=== PATIENT | male | born 1950 | race Caucasian/White ===

== ENCOUNTER 2018-06-14 02:17 | Observation (INO) | payer OTHER ==
[2018-06-14 02:24] VITALS: BMI 35.9
--- NOTE | 2018-06-14 02:30 | PDOC ---
History of Present Illness - General Chief Complaint: Overdose Stated Complaint: OVERDOSE Time Seen by Provider: 06/14/18 02:26 History Source: Patient, Spouse Exam Limitations: No Limitations - History of Present Illness Initial Comments: 06/14/18 02:45 prior to arrival, pt took 50U of humulog instead of the 5 that he normally takes. Accidental. Pt told his and she called EMS. Pt has no suicidal intent and he is in no pain; he complains of no weakness. He is eating normally. FS at home was 110. Here is 99. Past History - Travel Close contact w/someone who was outside of country & ill: No - Past Medical History Allergies/Adverse Reactions: Allergies Allergy/AdvReac Type Severity Reaction Status Date / Time No Known Allergies Allergy Verified 06/14/18 02:25 Home Medications: Ambulatory Orders Amlodipine Besylate/Benazepril [Lotrel 10-20 mg Capsule] 1 cap PO DAILY Duloxetine HCl 60 mg PO DAILY 06/14/18 Insulin Glargine,Hum.rec.anlog [Edward Wrightostar] 50 unit SQ DAILY 06/14/18 Insulin Lispro [Humalog] 5 - 15 unit SQ ACHS 06/14/18 Insulin Lispro [Humalog] 100 unit SQ PC 06/14/18 Metformin HCl [Glucophage] 1,000 mg PO BID 06/14/18 Omeprazole 20 mg PO DAILY 06/14/18 Pravastatin Sodium 20 mg PO DAILY 06/14/18 Semaglutide [Ozempic] 0.25 mg SQ WEEKLY 06/14/18 - Suicide/Smoking/Psychosocial Hx Smoking History: Former smoker Have you smoked in the past 12 months: No Information on smoking cessation initiated: No Review of Systems - Review of Systems Constitutional: No: Symptoms Reported, See HPI, Chills, Diaphoresis, Fever, Loss of Appetite, Malaise, Night Sweats, Weakness, Weight Stable, Unintentional Wgt. Loss, Unexplained wgt Loss, Other HEENTM: No: Symptoms Reported, See HPI, Eye Pain, Blurred Vision, Tearing, Recent change in vision, Double Vision, Cataracts, Ear Pain, Ocular Prothesis, Ear Discharge, Nose Pain, Nose Congestion, Tinnitus, Nose Bleeding, Hearing Loss , Throat Pain, Throat Swelling, Mouth Pain, Dental Problems, Difficulty Swallowing, Mouth Swelling, Other Respiratory: No: Symptoms reported, See HPI, Cough, Orthopnea, Shortness of Breath, SOB with Exertion, SOB at Rest, Stridor, Wheezing, Productive cough, Hemoptysis, Other Cardiac (ROS): No: Symptoms Reported, See HPI, Chest Pain, Edema, Irregular Heart Rate, Lightheadedness, Palpitations, Syncope, Chest Tightness, Other ABD/GI: No: Symptoms Reported, See HPI, Abdominal Distended, Abd. Pain w/ defecation, Blood Streaked Bowels, Constipated, Diarrhea, Difficulty Swallowing , Nausea, Poor Appetite, Poor Fluid Intake, Rectal Bleeding, Vomiting, Indigestion, Abdominal cramping, Tarry Stools, Other : No: Symptoms Reported, See HPI, Burning, Dysuria, Discharge, Frequency, Flank Pain, Hematuria, Incontinence, Pain, Urgency, Testicular Mass, Testicular Swelling, Lesions, Testicular Pain, Other Musculoskeletal: No: Symptoms Reported, See HPI, Back Pain, Gout, Joint Pain, Joint Swelling, Muscle Pain, Muscle Weakness, Neck Pain, Joint Stiffness, Other Integumentary: No: Symptoms Reported, See HPI, Bruising, Change in Color, Change in Hair/Nails, Dryness, Erythema, Flushing, Lesions, Lumps, Pallor, Pruritus, Rash, Sweating, Other Neurological: No: Symptoms reported, See HPI, Headache, Numbness, Paresthesia, Pre-Existing Deficit, Seizure, Tingling, Tremors, Weakness, Unsteady Gait, Ataxia, Dizziness, Other Hematologic/Lymphatic: No: Symptoms Reported, See HPI, Anemia, Blood Clots, Easy Bleeding, Easy Bruising, Bleeding Diathesis, Lymph Node Abnormalities, Swollen Glands, Other *Physical Exam - Vital Signs Last Vital Signs Temp Pulse Resp BP Pulse Ox 98.3 F 83 17 154/64 97 06/14/18 02:19 06/14/18 02:19 06/14/18 02:19 06/14/18 02:19 06/14/18 02:19 - Physical Exam General Appearance: Yes: Nourished, Appropriately Dressed, Other. No: Apparent Distress HEENT: positive: EOMI, Normal ENT Inspection, Symmetrical Neck: positive: Tender, Trachea midline, Normal Thyroid, Supple Respiratory/Chest: positive: Lungs Clear, Normal Breath Sounds. negative: Chest Tender, Respiratory Distress Cardiovascular: positive: Regular Rhythm, Regular Rate, S1, S2 Gastrointestinal/Abdominal: positive: Normal Bowel Sounds, Soft Musculoskeletal: positive: Normal Inspection. negative: CVA Tenderness Extremity: positive: Normal Capillary Refill, Normal Inspection, Normal Range of Motion, Pelvis Stable. negative: Tender Integumentary: positive: Normal Color, Dry, Warm Neurologic: positive: cow trimmer II-XII NML intact, Fully Oriented, Alert, Normal Mood/ Affect, Normal Response, Motor Strength 06/28 ED Treatment Course - LABORATORY CBC & Chemistry Diagram: 06/14/18 02:10 06/14/18 02:10 Medical Decision Making - Medical Decision Making 06/14/18 02:52 Pt will be observed in the ER. Humulog will remain in the blood active x 4 hrs. We will d/c patient at 7AM 06/14/18 03:01 Pt's blood sugar is 77 now. 06/14/18 04:05 He will be admitted for obs. as it is unclear what he took at home, and his blood sugar dropped to 45. 06/14/18 04:23 Pt was given D50 and his blood sugar dropped to 90s We will continue to watch in the ER; ED Obs and he will be signed out to the day ER team. 06/14/18 04:25 Pt refusing CXR; it is ok. *DC/Admit/Observation/Transfer Diagnosis at time of Disposition: Overdose of insulin, Hypoglycemia - Discharge Dispostion Condition at time of disposition: Guarded Decision to Admit order: Yes - Referrals - Patient Instructions - Post Discharge Activity
[2018-06-14] MEDS ORDERED: DEXTROSE 5%-0.45% SALINE 1,000 ML IV SCH (02:45)
[2018-06-14 02:52] LABS: BASO % 0.5 % (0-2.0); EOS % 1.4 % (0-4.5); HEMATOCRIT 42.7 % (35.4-49); HEMOGLOBIN 14.2 GM/dL (11.7-16.9); LYMPH % 56.2 % (8-40); MCH 27.5 pg (25.7-33.7); MCHC 33.2 g/dl (32.0-35.9); MEAN CELL VOLUME 82.9 fl (80-96); MEAN PLT VOLUME 8.3 fl (7.5-11.1); MONO % 4.9 % (3.8-10.2); PLATELET COUNT 269 K/MM3 (134-434); RBC 5.15 M/mm3 (4.00-5.60); RDW 13.8 % (11.9-15.9); WHITE BLOOD COUNT 13.4 K/mm3 (4.0-10.0)
[2018-06-14 03:17] LABS: ALBUMIN 4.2 g/dl (3.4-5.0); ALK PHOS 58 U/L (45-117); ANION GAP 9 MMOL/L (8-16); BILIRUBIN,TOTAL 0.2 mg/dL (0.2-1); BLOOD UREA NITROGEN 18 mg/dL (7-18); CALCIUM 9.4 mg/dL (8.5-10.1); CHLORIDE 109 mmol/L (98-107); CO2 23 mmol/L (21-32); CREATININE 1.2 mg/dL (0.55-1.3); GLUCOSE,RANDOM 79 mg/dL (74-106); POTASSIUM 3.9 mmol/L (3.5-5.1); SGOT/AST 17 U/L (15-37); SGPT/ALT 26 U/L (13-61); SODIUM 141 mmol/L (136-145); TOT PROT 7.6 g/dl (6.4-8.2)
[2018-06-14] MEDS ORDERED: DEXTROSE 50%-WATER 25 GM/50 ML DISP.SYRIN ONE ×2 (03:39→05:08)
[2018-06-14] MEDS ORDERED: DEXTROSE 50%-WATER - 25 GM/50 ML VIAL IVPUSH ONE ×2 (04:05→05:26)
[2018-06-14 06:46] VITALS: TEMP 97.8
[2018-06-14 08:10] LABS: BASO % 0.6 % (0-2.0); EOS % 1.1 % (0-4.5); HEMATOCRIT 38.8 % (35.4-49); HEMOGLOBIN 12.9 GM/dL (11.7-16.9); LYMPH % 43.5 % (8-40); MCH 27.6 pg (25.7-33.7); MCHC 33.2 g/dl (32.0-35.9); MEAN CELL VOLUME 83.1 fl (80-96); MEAN PLT VOLUME 8.2 fl (7.5-11.1); MONO % 7.1 % (3.8-10.2); NEUT % 47.7 % (42.8-82.8); PLATELET COUNT 243 K/MM3 (134-434); RBC 4.67 M/mm3 (4.00-5.60); RDW 13.9 % (11.9-15.9); WHITE BLOOD COUNT 11.9 K/mm3 (4.0-10.0)
[2018-06-14 08:34] LABS: ALBUMIN 3.6 g/dl (3.4-5.0); ALK PHOS 51 U/L (45-117); ANION GAP 7 MMOL/L (8-16); BILIRUBIN,TOTAL 0.3 mg/dL (0.2-1); BLOOD UREA NITROGEN 20 mg/dL (7-18); CALCIUM 9.2 mg/dL (8.5-10.1); CHLORIDE 109 mmol/L (98-107); CO2 23 mmol/L (21-32); CREATININE 1.1 mg/dL (0.55-1.3); GLUCOSE,RANDOM 74 mg/dL (74-106); PHOSPHOROUS 4.5 mg/dL (2.5-4.9); POTASSIUM 4.4 mmol/L (3.5-5.1); SGOT/AST 17 U/L (15-37); SGPT/ALT 26 U/L (13-61); SODIUM 139 mmol/L (136-145); TOT PROT 6.7 g/dl (6.4-8.2)
--- NOTE | 2018-06-14 10:02 | HP ---
CHIEF COMPLAINT: Overdose of short acting insulin PCP: None Senior Maintenance Technician:Dr Adriana Petit HISTORY OF PRESENT ILLNESS: Pt is a 67 Yo M with PMHx of HTN, T2DM, Asthma, GERD who presented in the ED from home at about 1am after injecting 50U of humalog accidentally, instead of about 5U last night about 11pm. No diaphoresis , no SOB, no pre-syncopal effects or tremors. Pt Started ozempic 2 months ago at 0.25mg on Tuesdays, once a week since which he has been needing to take extra glucose tablets more frequently. He is also on Toujeo-50U at night, glyburide-5mg bid, metformin 1000bid. He took all his night time medications before coming to the ED. He had no symptoms of hypoglycemia, but once he noticed , he took glucose tablets at home. Pt also has a glucose level monitor that he wears which has been giving him more frequent alerts to low glucose especially since he started ozempic. Also over the past month, he has started working with a university administrator and has adjusted his diet considerably. Pt reports prolonged satiety and abdominal discomfort since taking ozempic. Pt does not follow with a PCP, but sees his green lumber grader for medication adjustments. Initial BGM was 97 in ED>>54 >>77>>86. Since he has been in the ED, his blood glucose has not been up to 100. I spoke with poison control, who said humalog peak action should have been 30- 120mins, with overall duration <5hours. Poison control recommended pt be started on a diet and have glucose above [id number] before discharge. When I saw pt in the ED, the last BGM was 74, after breakfast. ER course was notable for: (1)BGM-97 in ED>>54 >>77>>86. (2) (3)D5/1/2 NS, D50 x2 Recent Travel: PAST MEDICAL HISTORY: HTN, T2DM, Asthma, GERD PAST SURGICAL HISTORY: Social History: Smoking:Smoked 1/2PPD for 10 years, quit 30yrs ago Alcohol: Drugs: Family History: Allergies No Known Allergies Allergy (Verified 06/14/18 02:25) HOME MEDICATIONS: Home Medications Medication Instructions Recorded Amlodipine Besylate/Benazepril 1 cap PO DAILY 06/14/18 [Lotrel 10-20 mg Capsule] Duloxetine HCl 60 mg PO DAILY 06/14/18 Insulin Glargine,Hum.rec.anlog 50 unit SQ DAILY 06/14/18 [Edward Abreu Adrianaostar] Insulin Lispro [Humalog] 5 - 15 unit SQ ACHS 06/14/18 Insulin Lispro [Humalog] 100 unit SQ PC 06/14/18 Metformin HCl [Glucophage] 1,000 mg PO BID 06/14/18 Omeprazole 20 mg PO DAILY 06/14/18 Pravastatin Sodium 20 mg PO DAILY 06/14/18 Semaglutide [Ozempic] 0.25 mg SQ WEEKLY 06/14/18 REVIEW OF SYSTEMS No symptoms PHYSICAL EXAMINATION Vital Signs - 24 hr 06/14/18 06/14/18 06/14/18 02:19 04:22 06:46 Temperature 98.3 F 97.8 F Pulse Rate 83 Pulse Rate [ 71 Right Radial] Respiratory 17 17 Rate Blood Pressure 154/64 Blood Pressure 130/63 [Right Arm] O2 Sat by Pulse 97 97 94 L Oximetry (%) GENERAL: Awake, alert, and fully oriented, in no acute distress. HEAD: Normal with no signs of trauma. EYES: Pupils equal, round and reactive to light, extraocular movements intact EARS, NOSE, THROAT: Ears normal, nares patent, oropharynx clear without exudates. Moist mucous membranes. NECK: Normal range of motion, supple LUNGS: Breath sounds equal, clear to auscultation bilaterally. No wheezes, and no crackles. HEART: Regular rate and rhythm, normal S1 and S2 ABDOMEN: Soft, nontender, obese, normoactive bowel sounds, no guarding MUSCULOSKELETAL: Normal range of motion at all joints. No bony deformities or tenderness. No CVA tenderness. LOWER EXTREMITIES: 2+ pulses, warm, well-perfused. No peripheral edema. NEUROLOGICAL: Cranial nerves II-XII intact. Normal speech. No lateralizing signs PSYCHIATRIC: Cooperative. Good eye contact. Appropriate mood and affect. CBC, BMP 06/14/18 07:50 06/14/18 07:50 Laboratory Results - last 24 hr 06/14/18 06/14/18 06/14/18 02:10 02:10 02:56 WBC 13.4 H RBC 5.15 Hgb 14.2 Hct 42.7 MCV 82.9 MCH 27.5 MCHC 33.2 RDW 13.8 Plt Count 269 MPV 8.3 Absolute Neuts (auto) 5.0 Neutrophils % 37.0 L Lymphocytes % 56.2 H Monocytes % 4.9 Eosinophils % 1.4 Basophils % 0.5 Nucleated RBC % 0 Sodium 141 Potassium 3.9 Chloride 109 H Carbon Dioxide 23 Anion Gap 9 BUN 18 Creatinine 1.2 Creat Clearance w eGFR 60.39 POC Glucometer 70 Random Glucose 79 Calcium 9.4 Phosphorus Magnesium Total Bilirubin 0.2 AST 17 ALT 26 Alkaline Phosphatase 58 Total Protein 7.6 Albumin 4.2 06/14/18 06/14/18 06/14/18 03:42 04:15 05:10 WBC RBC Hgb Hct MCV MCH MCHC RDW Plt Count MPV Absolute Neuts (auto) Neutrophils % Lymphocytes % Monocytes % Eosinophils % Basophils % Nucleated RBC % Sodium Potassium Chloride Carbon Dioxide Anion Gap BUN Creatinine Creat Clearance w eGFR POC Glucometer 46 97 54 Random Glucose Calcium Phosphorus Magnesium Total Bilirubin AST ALT Alkaline Phosphatase Total Protein Albumin 06/14/18 06/14/18 06/14/18 06:37 07:31 07:50 WBC RBC Hgb Hct MCV MCH MCHC RDW Plt Count MPV Absolute Neuts (auto) Neutrophils % Lymphocytes % Monocytes % Eosinophils % Basophils % Nucleated RBC % Sodium 139 Potassium 4.4 Chloride 109 H Carbon Dioxide 23 Anion Gap 7 L BUN 20 H Creatinine 1.1 Creat Clearance w eGFR 66.77 POC Glucometer 77 86 Random Glucose 74 Calcium 9.2 Phosphorus 4.5 Magnesium 2.0 Total Bilirubin 0.3 AST 17 ALT 26 Alkaline Phosphatase 51 Total Protein 6.7 Albumin 3.6 06/14/18 06/14/18 07:50 09:01 WBC 11.9 H RBC 4.67 Hgb 12.9 Hct 38.8 MCV 83.1 MCH 27.6 MCHC 33.2 RDW 13.9 Plt Count 243 MPV 8.2 Absolute Neuts (auto) 5.7 Neutrophils % 47.7 D Lymphocytes % 43.5 H D Monocytes % 7.1 Eosinophils % 1.1 Basophils % 0.6 Nucleated RBC % 0 Sodium Potassium Chloride Carbon Dioxide Anion Gap BUN Creatinine Creat Clearance w eGFR POC Glucometer 74 Random Glucose Calcium Phosphorus Magnesium Total Bilirubin AST ALT Alkaline Phosphatase Total Protein Albumin Current Medications Dextrose/Sodium Chloride (D5-1/2ns -) 1,000 mls @ 42 mls/hr IV ASDIR JAYESH Last Admin: 06/14/18 03:01 Dose: 42 mls/hr Ambulatory Orders Amlodipine Besylate/Benazepril [Lotrel 10-20 mg Capsule] 1 cap PO DAILY Duloxetine HCl 60 mg PO DAILY 06/14/18 Insulin Glargine,Hum.rec.anlog [Tousocorro Abreu Solostar] 50 unit SQ DAILY 06/14/18 Insulin Lispro [Humalog] 5 - 15 unit SQ ACHS 06/14/18 Insulin Lispro [Humalog] 100 unit SQ PC 06/14/18 Metformin HCl [Glucophage] 1,000 mg PO BID 06/14/18 Omeprazole 20 mg PO DAILY 06/14/18 Pravastatin Sodium 20 mg PO DAILY 06/14/18 Semaglutide [Ozempic] 0.25 mg SQ WEEKLY 06/14/18 ASSESSMENT/PLAN: Pt is a 67 Yo M with PMHx of HTN, T2DM, Asthma, GERD who presented in the ED from home at about 1am after injecting 50U of humalog accidentally, instead of about 5U last night about 11pm. #Insulin overdose in T2DM Pt reported it as accidental, with no intention to harm himself Took short acting instead of long acting Spoke with poison control- Glucose should have returned to above 100 within 5 years Delayed normoglycemia could be attributed to multiple hypoglycemic agents Hold all oral hypoglycemics for now Follow up with PMD on Friday06/15/18 Pt to take long acting insulin if sugars >150 Pt to monitor glucose with glucometer and continous monitor Will need to discuss medication adjustments with PMD #Leucocytosis 13.4>.11 Pt not on chronic steroids Denied any symptoms on ROS UA pending #HTN Cont otrel for BP #Asthma Not in exacerbation Not on home nebs or inhalers Cont to monitor #GERD Cont omeprazole #FEN Pt on D51/2NS Monitor lytes, replete as needed Diabetic diet #PPx Early ambulation #Dispo For Dc home if glucose normalizes Visit type - Emergency Visit Emergency Visit: Yes ED Registration Date: 06/14/18 Care time: The patient presented to the Emergency Department on the above date and was hospitalized for further evaluation of their emergent condition. - New Patient This patient is new to me today: Yes Date on this admission: 06/14/18 - Critical Care Critical Care patient: No
[2018-06-14 10:25] LABS: ANISOCYTOSIS 0; HELMET CELLS 0; HOWELL-JOLLY BODIES 0; MACROCYTOSIS 0; OVALOCYTE 0; PLATELET ESTIMATE NORMAL; ROULEAU 0; SICKELED CELLS 0; TARGET CELLS 0; TEAR DROP CELLS 0; TOXIC GRANULATION 0
[2018-06-14 11:43] LABS: URINE APPEARANCE CLEAR; URINE BILIRUBIN NEGATIVE (NEGATIVE); URINE COLOR YELLOW; URINE GLUCOSE (UA) NEGATIVE (NEGATIVE); URINE KETONE NEGATIVE (NEGATIVE); URINE LEUK ESTERASE NEGATIVE (NEGATIVE); URINE NITRITE NEGATIVE (NEGATIVE); URINE PROTEIN NEGATIVE (NEGATIVE); URINE UROBILINOGEN 0.2 mg/dL (0.2-1.0)
--- NOTE | 2018-06-14 12:34 | DS ---
Physical Exam: SUBJECTIVE: Patient seen and examined. Pt has no symptoms, no SOB, no diaphoresis, no dizziness. Had a little oatmeal to eat in the am OBJECTIVE: Vital Signs Period Temp Pulse Resp BP Sys/Vazquez Pulse Ox Last 24 Hr 97.8 F-98.3 F 71-83 17-17 130-154/63-64 94-97 Vital Signs Temp 97.8 F 06/14/18 06:46 Pulse 71 06/14/18 06:46 Resp 17 06/14/18 04:22 BP 130/63 06/14/18 06:46 Pulse Ox 94 L 06/14/18 06:46 Intake & Output 06/13/18 06/14/18 06/14/18 23:59 11:59 23:59 Weight 113.398 kg Other: Voiding Method Toilet Height 1.78 m Body Mass Index (BMI) 35.9 Weight Measurement Method Est/Stated by Patient PHYSICAL EXAM GENERAL: Awake, alert, and fully oriented, in no acute distress. HEAD: Normal with no signs of trauma. EYES: Pupils equal, round and reactive to light, extraocular movements intact EARS, NOSE, THROAT: Ears normal, nares patent, oropharynx clear without exudates. Moist mucous membranes. NECK: Normal range of motion, supple LUNGS: Breath sounds equal, clear to auscultation bilaterally. No wheezes, and no crackles. HEART: Regular rate and rhythm, normal S1 and S2 ABDOMEN: Soft, nontender, obese, normoactive bowel sounds, no guarding MUSCULOSKELETAL: Normal range of motion at all joints. No bony deformities or tenderness. No CVA tenderness. LOWER EXTREMITIES: 2+ pulses, warm, well-perfused. No peripheral edema. NEUROLOGICAL: Cranial nerves II-XII intact. Normal speech. No lateralizing signs PSYCHIATRIC: Cooperative. Good eye contact. Appropriate mood and affect. LABS Laboratory Results - last 24 hr 06/14/18 06/14/18 06/14/18 02:10 02:10 02:56 WBC 13.4 H RBC 5.15 Hgb 14.2 Hct 42.7 MCV 82.9 MCH 27.5 MCHC 33.2 RDW 13.8 Plt Count 269 MPV 8.3 Absolute Neuts (auto) 5.0 Neutrophils % 37.0 L Neutrophils % (Manual) Band Neutrophils % Lymphocytes % 56.2 H Lymphocytes % (Manual) Monocytes % 4.9 Monocytes % (Manual) Eosinophils % 1.4 Eosinophils % (Manual) Basophils % 0.5 Basophils % (Manual) Myelocytes % (Man) Promyelocytes % (Man) Blast Cells % (Manual) Nucleated RBC % 0 Metamyelocytes Hypochromia Toxic Granulation Dohle Bodies Platelet Estimate Polychromasia Poikilocytosis Basophilic Stippling Anisocytosis Microcytosis Macrocytosis Spherocytes Sickle Cells Target Cells Tear Drop Cells Ovalocytes Stomatocytes Helmet Cells [place] Bodies [place] Rings [place] Cells Acanthocytes (Spur) Rouleaux Fragmented RBCs Schistocytes Sodium 141 Potassium 3.9 Chloride 109 H Carbon Dioxide 23 Anion Gap 9 BUN 18 Creatinine 1.2 Creat Clearance w eGFR 60.39 POC Glucometer 70 Random Glucose 79 Calcium 9.4 Phosphorus Magnesium Total Bilirubin 0.2 AST 17 ALT 26 Alkaline Phosphatase 58 Total Protein 7.6 Albumin 4.2 Urine Color Urine Appearance Urine pH Ur Specific [place] Urine Protein Urine Glucose (UA) Urine Ketones Urine Blood Urine Nitrite Urine Bilirubin Urine Urobilinogen Ur Leukocyte Esterase 06/14/18 06/14/18 06/14/18 03:42 04:15 05:10 WBC RBC Hgb Hct MCV MCH MCHC RDW Plt Count MPV Absolute Neuts (auto) Neutrophils % Neutrophils % (Manual) Band Neutrophils % Lymphocytes % Lymphocytes % (Manual) Monocytes % Monocytes % (Manual) Eosinophils % Eosinophils % (Manual) Basophils % Basophils % (Manual) Myelocytes % (Man) Promyelocytes % (Man) Blast Cells % (Manual) Nucleated RBC % Metamyelocytes Hypochromia Toxic Granulation Dohle Bodies Platelet Estimate Polychromasia Poikilocytosis Basophilic Stippling Anisocytosis Microcytosis Macrocytosis Spherocytes Sickle Cells Target Cells Tear Drop Cells Ovalocytes Stomatocytes Helmet Cells [place] Bodies [place] Rings [place] Cells Acanthocytes (Spur) Rouleaux Fragmented RBCs Schistocytes Sodium Potassium Chloride Carbon Dioxide Anion Gap BUN Creatinine Creat Clearance w eGFR POC Glucometer 46 97 54 Random Glucose Calcium Phosphorus Magnesium Total Bilirubin AST ALT Alkaline Phosphatase Total Protein Albumin Urine Color Urine Appearance Urine pH Ur Specific [place] Urine Protein Urine Glucose (UA) Urine Ketones Urine Blood Urine Nitrite Urine Bilirubin Urine Urobilinogen Ur Leukocyte Esterase 06/14/18 06/14/18 06/14/18 06:37 07:31 07:50 WBC RBC Hgb Hct MCV MCH MCHC RDW Plt Count MPV Absolute Neuts (auto) Neutrophils % Neutrophils % (Manual) Band Neutrophils % Lymphocytes % Lymphocytes % (Manual) Monocytes % Monocytes % (Manual) Eosinophils % Eosinophils % (Manual) Basophils % Basophils % (Manual) Myelocytes % (Man) Promyelocytes % (Man) Blast Cells % (Manual) Nucleated RBC % Metamyelocytes Hypochromia Toxic Granulation Dohle Bodies Platelet Estimate Polychromasia Poikilocytosis Basophilic Stippling Anisocytosis Microcytosis Macrocytosis Spherocytes Sickle Cells Target Cells Tear Drop Cells Ovalocytes Stomatocytes Helmet Cells [place] Bodies [place] Rings [place] Cells Acanthocytes (Spur) Rouleaux Fragmented RBCs Schistocytes Sodium 139 Potassium 4.4 Chloride 109 H Carbon Dioxide 23 Anion Gap 7 L BUN 20 H Creatinine 1.1 Creat Clearance w eGFR 66.77 POC Glucometer 77 86 Random Glucose 74 Calcium 9.2 Phosphorus 4.5 Magnesium 2.0 Total Bilirubin 0.3 AST 17 ALT 26 Alkaline Phosphatase 51 Total Protein 6.7 Albumin 3.6 Urine Color Urine Appearance Urine pH Ur Specific [place] Urine Protein Urine Glucose (UA) Urine Ketones Urine Blood Urine Nitrite Urine Bilirubin Urine Urobilinogen Ur Leukocyte Esterase 06/14/18 06/14/18 06/14/18 07:50 09:01 10:12 WBC 11.9 H RBC 4.67 Hgb 12.9 Hct 38.8 MCV 83.1 MCH 27.6 MCHC 33.2 RDW 13.9 Plt Count 243 MPV 8.2 Absolute Neuts (auto) 5.7 Neutrophils % 47.7 D Neutrophils % (Manual) 46.5 Band Neutrophils % 0.0 Lymphocytes % 43.5 H D Lymphocytes % (Manual) 36.3 Monocytes % 7.1 Monocytes % (Manual) 8 Eosinophils % 1.1 Eosinophils % (Manual) 1.0 Basophils % 0.6 Basophils % (Manual) 1.0 Myelocytes % (Man) 0 Promyelocytes % (Man) 0 Blast Cells % (Manual) 0 Nucleated RBC % 0 Metamyelocytes 0 Hypochromia 0 Toxic Granulation 0 Dohle Bodies 0 Platelet Estimate Normal Polychromasia 0 Poikilocytosis 0 Basophilic Stippling 0 Anisocytosis 0 Microcytosis 0 Macrocytosis 0 Spherocytes 0 Sickle Cells 0 Target Cells 0 Tear Drop Cells 0 Ovalocytes 0 Stomatocytes 0 Helmet Cells 0 [place] Bodies 0 [place] Rings 0 [place] Cells 0 Acanthocytes (Spur) 0 Rouleaux 0 Fragmented RBCs 0 Schistocytes 0 Sodium Potassium Chloride Carbon Dioxide Anion Gap BUN Creatinine Creat Clearance w eGFR POC Glucometer 74 106 Random Glucose Calcium Phosphorus Magnesium Total Bilirubin AST ALT Alkaline Phosphatase Total Protein Albumin Urine Color Urine Appearance Urine pH Ur Specific [place] Urine Protein Urine Glucose (UA) Urine Ketones Urine Blood Urine Nitrite Urine Bilirubin Urine Urobilinogen Ur Leukocyte Esterase 06/14/18 06/14/18 06/14/18 11:32 11:38 12:27 WBC RBC Hgb Hct MCV MCH MCHC RDW Plt Count MPV Absolute Neuts (auto) Neutrophils % Neutrophils % (Manual) Band Neutrophils % Lymphocytes % Lymphocytes % (Manual) Monocytes % Monocytes % (Manual) Eosinophils % Eosinophils % (Manual) Basophils % Basophils % (Manual) Myelocytes % (Man) Promyelocytes % (Man) Blast Cells % (Manual) Nucleated RBC % Metamyelocytes Hypochromia Toxic Granulation Dohle Bodies Platelet Estimate Polychromasia Poikilocytosis Basophilic Stippling Anisocytosis Microcytosis Macrocytosis Spherocytes Sickle Cells Target Cells Tear Drop Cells Ovalocytes Stomatocytes Helmet Cells [place] Bodies [place] Rings [place] Cells Acanthocytes (Spur) Rouleaux Fragmented RBCs Schistocytes Sodium Potassium Chloride Carbon Dioxide Anion Gap BUN Creatinine Creat Clearance w eGFR POC Glucometer 148 149 Random Glucose Calcium Phosphorus Magnesium Total Bilirubin AST ALT Alkaline Phosphatase Total Protein Albumin Urine Color Yellow Urine Appearance Clear Urine pH 6.0 Ur Specific [place] 1.022 Urine Protein Negative Urine Glucose (UA) Negative Urine Ketones Negative Urine Blood Negative Urine Nitrite Negative Urine Bilirubin Negative Urine Urobilinogen 0.2 Ur Leukocyte Esterase Negative HOSPITAL COURSE: Date of Admission:06/14/18 Date of Discharge: 06/14/18 Prehospital Course: Pt is a 67 Yo M with PMHx of HTN, T2DM, Asthma, GERD who presented in the ED from home at about 1am after injecting 50U of humalog accidentally, instead of about 5U last night about 11pm. No diaphoresis, no SOB, no pre-syncopal effects or tremors. Pt Started ozempic 2 months ago at 0.25mg on Tuesdays, once a week since which he has been needing to take extra glucose tablets more frequently. He is also on Toujeo-50U at night, glyburide-5mg bid, metformin 1000bid. He took all his night time medications before coming to the ED. He had no symptoms of hypoglycemia, but once he noticed, he took glucose tablets at home. Pt also has a glucose level monitor that he wears which has been giving him more frequent alerts to low glucose especially since he started ozempic. Also over the past month, he has started working with a mandolin repair person and has adjusted his diet considerably. Pt reports prolonged satiety and abdominal discomfort since taking ozempic. Pt does not follow with a PCP, but sees his service cashier for medication adjustments. Initial BGM was 97 in ED>>54 >>77>>86. Hospital Course: Pt was monitored Q1H with BGMs and had 2 veiinous samples of glucose. He food and was on D51/2NS. His BGM eventually trended from 106>>148>!49, and he remained asymptomatic. He had an initial leucocytosis 13.4 which could have been reactive that trended down to 11.9, UA was negative and there was no other signs of infection. He was discharged home to dc all oral hypoglycemics and follow up with his PMD / Ice Puller- Dr Philip on Thursday 06/15. Information for [facility] was also provided for him to establish care with a PCP. He was also asked to monitor his glucose and use the long acting insulin if the sugars are above 150 Minutes to complete discharge: 35 Discharge Summary Reason For Visit: HYPOGLYCEMIA, INSULIN OVERDOSE Current Active Problems Hypoglycemia (Acute) Overdose of insulin (Acute) Condition: Improved - Instructions Diet, Activity, Other Instructions: You came in because you accidently overdosed on your short acting insulin We monitored you, gave you food and IVF and your blood glucose roxanna above 100. Your white count cells appeared to be elevated initially but went down, we did not identify any source of infection Follow up with your primary care doctor tomorrow (06/15/18). If you do not have one you may follow with [facility], information has been provided for you You may need adjustment of your diabetic medications Do not take any of your diabetes medications by mouth until you see your doctor Check your glucose before every meal and at night as you have been doing using both a glucometer and your continous monitor, If your sugars are above 150, take the long acting insulin You may continue your other medications as prescribed If you think your symptoms are worsening with symptoms of low sugar, such as tremors, sweating and feeling faint/weak despite eating/ taking glucose please return to the nearest emergency room Referrals: [facility] [Provider Group] - 06/15/18 (Call to make an appointment for between 1pm-3.30pm Ask for Dr Louisa Berry) Devyn Philip MD [Staff Physician] - 06/15/18 Disposition: HOME - Home Medications Comprehensive Discharge Medication List: Ambulatory Orders Amlodipine Besylate/Benazepril [Lotrel 10-20 mg Capsule] 1 cap PO DAILY Duloxetine HCl 60 mg PO DAILY 06/14/18 Insulin Glargine,Hum.rec.anlog [Edward Darling] 50 unit SQ DAILY 06/14/18 Omeprazole 20 mg PO DAILY 06/14/18 Pravastatin Sodium 20 mg PO DAILY 06/14/18 This patient is new to me today: Yes Date on this admission: 06/14/18 Emergency Visit: Yes ED Registration Date: 06/14/18 Care time: The patient presented to the Emergency Department on the above date and was hospitalized for further evaluation of their emergent condition. Critical Care patient: No - Discharge Referral Referred to [facility] No
--- NOTE | 2018-06-14 12:35 | PN ---
Teaching Attending Note Name of Resident: Louisa Berry ATTENDING PHYSICIAN STATEMENT I saw and evaluated the patient. I reviewed the resident's note and discussed the case with the resident. I agree with the resident's findings and plan as documented. SUBJECTIVE:67yo M with PMH DM and GERD presented to the ER for accidental overdose of his insulin. states he took humalog 50units instead of 5 units accidentally. called EMS and did not have any symptoms at this time. did have it while here in the ER when his sugar was in the 40's, felt dizzy, diaphoretic and palpitations. he did take his other medications yesterday like prescribed. was started on ozempic 2 months ago and since then has been getting alerts from his continuous glucometer when his sugar is <90 which has been happening more frequently during this time. has also lost 5 lbs and significantly adjusted his diet during this time. denies CP, SOB, fever, chills, N/V/C/D, dysuria takes ozempic on Wednesdays OBJECTIVE: Last Vital Signs Temp Pulse Resp BP Pulse Ox 97.8 F 71 17 130/63 94 L 06/14/18 06:46 06/14/18 06:46 06/14/18 04:22 06/14/18 06:46 06/14/18 06:46 General NAD ASSESSMENT AND PLAN: 67yo M with PMH DM and GERD presented to the ER for accidental overdose of his insulin and developed symptomatic hypoglycemia while here in the ER 1. Accidental overdose of insulin with symptomatic hypoglycemia- received D50 x2. has been off D5w for over an hour and his sugars have been 150+ ( he reports 200 on his monitor). this is likely poteniated by polypharmacy as he is on multiple agents including glipizide which can be culprit in hypoglycemia. pt expressed desire to go home and follow up with residential caregiver tomorrow. recommend holding all oral agents until discussing his his PMD. recommend taking long acting basal insulin tonight if sugars are persistently >150 for the remainder of the day. also recommend that he uses his glucometer in conjunction with his continuous monitor to ensure that the readings are accurate and see for any discrepancies. 2. Leukocytosis- liekly reactive. check UA. would hold abx unless UA is + 3. spoke in detail with patient regarding plan and verbalized understanding and agreement. answered all questions. present at bedside will d/c home pending results of UA
[2018-06-14 12:56] VITALS: BP 154/71; PULSE 78
--- NOTE | 2018-06-14 12:57 | EKG ---
Test Reason : Blood Pressure : / mmHG Vent. Rate : 075 BPM Atrial Rate : 075 BPM P-R Int : 204 ms QRS Dur : 104 ms QT Int : 376 ms P-R-T Axes : 064 039 060 degrees QTc Int : 419 ms SINUS RHYTHM WITH OCCASIONAL PREMATURE VENTRICULAR COMPLEXES OTHERWISE NORMAL ECG Confirmed by MD THOMAS, JACK ([id number]) on 06/14/2018 12:56:53 PM Referred By: Confirmed By:JACK GUZMAN MD
== END 2018-06-14 13:27 | disposition home or self-care (01) ==
LOC: JER 02:17 → JERBED 04:08
PROVIDERS: ADMIT Internal Medicine; ATTEND Internal Medicine
PROC: 3E013GC Introduction of Other Therapeutic Substance into Subcutaneous Tissue, Percutaneous Approach (ICD-10-PCS; principal; 2018-06-14)
DX: T38.3X1A Poisoning by insulin and oral hypoglycemic [antidiabetic] drugs, accidental (unintentional), initial encounter (principal); Y92.009 Unspecified place in unspecified non-institutional (private) residence as the place of occurrence of the external cause; E11.649 Type 2 diabetes mellitus with hypoglycemia without coma; Z79.4 Long term (current) use of insulin; D72.829 Elevated white blood cell count, unspecified; I10 Essential (primary) hypertension; J45.909 Unspecified asthma, uncomplicated; K21.9 Gastro-esophageal reflux disease without esophagitis
CPT/HCPCS: 36415; 80053; 81003; 82962; 83735; 84100; 85025; 93005; 93010; 96372; 99284-25; G0378

== ENCOUNTER 2019-11-03 01:18 | Emergency (ER) | payer OTHER, BC ==
[2019-11-03 02:03] VITALS: BP 145/61; TEMP 98.9; BMI 28.7
--- NOTE | 2019-11-03 02:46 | PDOC ---
Attending Attestation - Resident Resident Name: Willam Gaytan - ED Attending Attestation I have performed the following: I have examined & evaluated the patient, The case was reviewed & discussed with the resident, I agree w/resident's findings & plan - HPI HPI: 11/03/19 04:56 see resident hpi - Physicial Exam PE: 11/03/19 04:57 see resident exam - Medical Decision Making 11/03/19 04:57 68-year-old male complaining of constipation and urinary retention on Patient states he gets constipated frequently and feels he is unable to urinate due to the pressure At patient's request he was provided an enema after physical exam which did not elicit abdominal tenderness or distention Patient had a successful bowel movement and is completely relieved and asymptomatic stating he wishes to go home No additional work-up indicated at this time Discharge - Discharge Information Problems reviewed: Yes Clinical Impression/Diagnosis: Constipation Qualifiers: Constipation type: unspecified constipation type Qualified Code(s): K59.00 - Constipation, unspecified Condition: Stable Disposition: HOME - Follow up/Referral - Patient Discharge Instructions Patient Printed Discharge Instructions: DI for Constipation Additional Instructions: You were seen and evaluated at [facility] for difficulty with urination. Please continue your home medications as directed. Follow up with your PCP within 1 week to discuss your constipation and diet. Return to the ED with any new or concerning symptoms. - Post Discharge Activity
--- NOTE | 2019-11-03 02:46 | PDOC ---
History of Present Illness - General Chief Complaint: Urinary Problem Stated Complaint: URINARY PROBLEM Time Seen by Provider: 11/03/19 02:45 History Source: Patient Exam Limitations: No Limitations - History of Present Illness Initial Comments: 11/03/19 02:46 HPI: 68 yo M PMH HTN, T2DM, Asthma, GERD presenting with 2 hours of the sensation of urinary retention in the setting of firm stool / 2 days of constipation. Patient reports firm stools for 2 weeks c/w prior episodes of constipation (reports it is related to diet), last BM 2 days ago. Tonight he awoke needing to urinate but was unable to pass urine. He states that he is not worried about the constipation because he can always use a fleet enema at home but was concerned that he could not urinate. No history of urianry retention. Meds: Per chart All: NKDA PMH: As above PSH: Denies Past History - Travel History Traveled outside of the country in the last 30 days: No Close contact w/someone who was outside of country & ill: No - Medical History Allergies/Adverse Reactions: Allergies Allergy/AdvReac Type Severity Reaction Status Date / Time No Known Allergies Allergy Verified 06/14/18 02:25 Home Medications: Ambulatory Orders Amlodipine Besylate/Benazepril [Lotrel 10-20 mg Capsule] 1 cap PO DAILY 06/14/18 Duloxetine HCl 60 mg PO DAILY 06/14/18 Insulin Glargine,Hum.rec.anlog [Edward Darling] 50 unit SQ DAILY 06/14/18 Omeprazole 20 mg PO DAILY 06/14/18 Pravastatin Sodium 20 mg PO DAILY 06/14/18 COPD: No Diabetes: Yes - Immunization History Immunization Up to Date: Yes - Psycho-Social/Smoking History Smoking History: Unknown if ever smoked Have you smoked in the past 12 months: No - Substance Abuse Hx (Audit-C & DAST Scrn) How often the patient has a drink containing alcohol: Monthly or less Score: In Men: 4 or > Positive; In Women: 3 or > Positive: 1 Screen Result (Pos requires Nsg. Audit-10AR): Negative In the last yr the pt used illegal drug/Rx for NonMed reason: No Score: Yes response is considered Positive: 0 Screen Result (Positive result requires Nsg. DAST-10): Negative Review of Systems - Review of Systems Able to Perform ROS?: Yes Is the patient limited Cam[place] proficient: Yes Constitutional: No: Chills, Fever, Weakness HEENTM: No: Recent change in vision, Nose Congestion, Throat Pain Respiratory: No: Cough, Orthopnea, Shortness of Breath Cardiac (ROS): No: Chest Pain, Edema, Irregular Heart Rate, Lightheadedness, Palpitations, Syncope, Chest Tightness ABD/GI: No: Constipated, Diarrhea, Nausea, Poor Appetite, Poor Fluid Intake, Vomiting : Yes: Urgency. No: Burning, Dysuria, Frequency, Flank Pain, Hematuria, Testicular Mass, Testicular Pain Musculoskeletal: No: Back Pain, Muscle Pain, Muscle Weakness, Neck Pain Integumentary: No: Bruising, Lesions, Lumps Neurological: No: Headache, Numbness, Tingling, Weakness Psychiatric: No: Stressors, Change in Appetite Endocrine: No: Increased Thirst, Increased Urine, Change in Weight Hematologic/Lymphatic: No: Anemia, Blood Clots, Easy Bleeding All Other Systems: Reviewed and Negative *Physical Exam - Vital Signs Last Vital Signs Temp Pulse Resp BP Pulse Ox 98.9 F 84 18 145/61 98 11/03/19 01:46 11/03/19 01:46 11/03/19 01:46 11/03/19 01:46 11/03/19 01:46 - Physical Exam 11/03/19 04:52 Vitals reviewed, AFHDS GEN: Well appearing, appears stated age, NAD, comfortable. AAOx3. HEENT: NCAT, EOMI, PERRL. Sclera anicteric, noninjected. No facial asymmetry. Moist mucous membranes. Normal voice. Trachea midline. CV: RRR, S1/S2, no murmurs / rubs / gallops appreciated. LUNG: CTABL, normal work of breathing. No wheezes, rales, rhonchi. No cough. Speaking full sentences. GI: Soft, NTND, +BS, no guarding, no rebound. No masses. EXTREMITIES: 2+ distal pulses. No clubbing / cyanosis / edema. No gross deformity in any extremity. SKIN: Warm, dry, no rashes appreciated, non-jaundiced. PSYCH: Normal mood and affect. Cooperative and appropriate. NEURO: CN grossly intact. Moving all extremities well. Normal strength and sensation grossly. Medical Decision Making - Medical Decision Making 11/03/19 04:48 68 yo M PMH HTN, T2DM, Asthma, GERD presenting with 2 hours of the sensation of urinary retention in the setting of firm stool / 2 days of constipation. - Bladder with 475cc urine - Fleet Enema - Passed both stool and urine s/p enema. Dispo: Home Discharge - Discharge Information Problems reviewed: Yes Clinical Impression/Diagnosis: Constipation Qualifiers: Constipation type: unspecified constipation type Qualified Code(s): K59.00 - Constipation, unspecified Condition: Stable Disposition: HOME - Admission No - Follow up/Referral - Patient Discharge Instructions Patient Printed Discharge Instructions: DI for Constipation Additional Instructions: You were seen and evaluated at [facility] for difficulty with urination. Please continue your home medications as directed. Follow up with your PCP within 1 week to discuss your constipation and diet. Return to the ED with any new or concerning symptoms. - Post Discharge Activity
[2019-11-03] MEDS ORDERED: SODIUM PHOSPHATE/NA BIPHOS 133 ML ENEMA PR ONE (03:07)
[2019-11-03 05:13] VITALS: PULSE 82
== END 2019-11-03 05:13 | disposition home or self-care (01) ==
LOC: JER 01:18
DX: K59.00 Constipation, unspecified (principal)
CPT/HCPCS: 99283-25